=== PATIENT | female | born 1985 | race Two or more races ===

== ENCOUNTER 2017-01-06 05:55 | Inpatient (IN) | payer OTHER ==
[2017-01-06] MEDS ORDERED: DEXTROSE 5%-LACTATED RINGERS 1,000 ML IV SCH ×2 (07:00→11:15)
[2017-01-06 07:03] VITALS: BMI 28.1
[2017-01-06 07:32] LABS: INR 0.89 (0.82-1.09); PROTHROMBIN TIME (PATIENT) 9.8 SEC (9.98-11.88)
[2017-01-06 07:33] LABS: BASOPHIL 0.5 % (0-2.0); EOSINOPHIL 0.5 % (0-4.5); MCH 34.3 pg (25.7-33.7); MCHC 34.9 g/dl (32.0-36.0); MEAN CELL VOLUME 98.2 fl (80-96); MEAN PLT VOLUME 9.4 fl (7.5-11.1); NEUTROPHILS 58.9 % (42.8-82.8); PLATELET COUNT 175 K/MM3 (134-434); RDW 12.9 % (11.6-15.6); WHITE BLOOD COUNT 10.4 K/mm3 (4.0-10.0)
[2017-01-06 07:34] LABS: ACTIVATED PTT 31.1 SECONDS (26.9-34.4)
[2017-01-06 07:41] LABS: ANION GAP 10 (8-16); CALCIUM 8.3 mg/dL (8.5-10.1); CO2 24 mmol/L (21-32); CREATININE 0.5 mg/dL (0.55-1.02); GLUCOSE,RANDOM 75 mg/dL (74-106)
[2017-01-06] MEDS ORDERED: DINOPROSTONE 10 MG VAGINAL SUPPOSITORY VG ONE (10:10)
[2017-01-06] MEDS ORDERED: BUTORPHANOL TARTRATE 1 MG/ML VIAL IVPB ONE (11:08)
[2017-01-06] MEDS ORDERED: PROMETHAZINE HCL 25 MG/1 ML VIAL IVPUSH PRN (11:08)
[2017-01-06] MEDS ORDERED: SODIUM PHOSPHATE/NA BIPHOS 133 ML ENEMA PR PRN (11:12)
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
[2017-01-06] MEDS ORDERED: AMPICILLIN - 2 GM in SODIUM CHLORIDE 100 ML IVPB ONE (20:20)
--- NOTE | 2017-01-06 22:57 | PN ---
Progress Note, Labor Vaginal Exam #1 Labor Exam Date: 01/06/17 Labor Exam Time: 22:30 Heart Rate (range): 140 Dilatation: 3-4 Effacement (%): 80 Amniotic Membrane Status: Ruptured Presentation: Vertex/Position Station: -2 (caput) Remarks: FHR cat-1 UC mild to moderate , Cervidil removed pt requests for pain meds declines enema Pitocin augmentation after pain meds prn Iv ampicillin prophylaxis begun due to SROM > 18 hrs Selected Entries 01/06/17 22:00 Temperature 98.8 F Pulse Rate 116 H Blood Pressure 128/78 Laboratory Tests 01/06/17 06:30 INR 0.89 PTT (Actin FS) 31.1 Vaginal Exam #2 Labor Exam Date: 01/07/17 Labor Exam Time: 01:40 Heart Rate (range): 140 Dilatation: 7 Effacement (%): 90 Amniotic Membrane Status: Ruptured Presentation: Vertex/Position Station: 0 (caput) Remarks: uc q4-7 min fhr 130-140 cat-1 Vaginal Exam #3 Labor Exam Date: 01/07/17 Labor Exam Time: 02:30 Heart Rate (range): 150 Dilatation: 10 Effacement (%): 100 Amniotic Membrane Status: Ruptured Presentation: Vertex/Position Station: +2 Remarks: fhr cat-1 UC 3-5 min pt pushing
[2017-01-07] MEDS ORDERED: AMPICILLIN - 1 GM in SODIUM CHLORIDE 100 ML IVPB SCH (00:21)
[2017-01-07] MEDS ORDERED: OXYTOCIN 15 UNITS/ LR 250 ML 250 ML IVPB SCH (01:15)
[2017-01-07] MEDS ORDERED: oxyCODONE HCL 5 MG TABLET PO PRN (03:40)
[2017-01-07] MEDS ORDERED: ACETAMINOPHEN 325 MG TABLET (FP) PO PRN (03:40)
[2017-01-07] MEDS ORDERED: BENZOCAINE 28 GM HEMORRHOIDAL OINTMENT TP PRN (03:40)
[2017-01-07] MEDS ORDERED: BISACODYL 10 MG SUPP.RECT RC PRN (03:40)
[2017-01-07] MEDS ORDERED: BENZOCAINE 20% 57 GM BOTTLE TP PRN (03:40)
[2017-01-07] MEDS ORDERED: METHYLERGONOVINE MALEATE 0.2 MG/1 ML AMP IM PRN (03:40)
[2017-01-07] MEDS ORDERED: IBUPROFEN 600 MG TABLET (FP) PO PRN (03:40)
[2017-01-07] MEDS ORDERED: WITCH HAZEL 50% (TUCKS) 40 PAD/JAR PAD TP PRN (03:40)
[2017-01-07] MEDS ORDERED: D5W-LR W/ 20 UNITS OXYTOCIN 1,000 ML IV SCH (03:45)
--- NOTE | 2017-01-07 03:56 | PN ---
Delivery - Delivery Vaginal Delivery: No Problems, Spontaneous Type of Anesthesia: Local Episiotomy/Laceration: Periurethral Extnsion/lac (vaginal lacration was sutured with Chr catgut #2/0 bilateral periurethral laceration sutured under L/A with vicryl #3/0 bladder catheterized 150 ml urine drained), Vaginal Extension/lac , 1st degree EBL (cc): 400 (IM Methergine 0.2 mg given ) Delivery, Single - Stages of Labor Date 1st Stage Initiatied: 01/06/17 Time 1st Stage Initiated: 23:00 Date 2nd Stage Initiated: 01/07/17 Time 2nd Stage Initiated: 02:30 Date of Delivery: 01/07/17 Time of Delivery: 02:58 Date Placenta Delivered: 01/07/17 Time Placenta Delivered: 03:05 Placenta: Yes: Spontaneous, Uterine Exploration - Condition of Media Consultant/Financial Director Present: No Infant Gender: Male Weight: 7 lb 1 oz Position: Left, OP Total Hours ROM (Hrs/Mins): 23hrs-40min - 1 Minute Total Score: 9 5 Minutes Total Score: 9 - [place] Feeding Plan Initial Plan: Exclusive throughout hospitalization Remarks - Remarks Remarks: 31 yrs 38.2/7 weeks ,admitted for SROM pnc at [address] [place] [address] . Cervidil inserted for 12 hrs GBS neg Antibiotic prophylaxis with Iv Ampicillin x 2 doses were given due to prolonged srom intrapartum course uneventful
[2017-01-07] MEDS: FERROUS SO4 325 MG TABLET (FP) PO SCH ×2 (08:00→18:03)
[2017-01-07] MEDS: PRENATAL VITAMINS W/ FOLIC ACID TABLET (FP) PO SCH (10:00)
[2017-01-07] MEDS ORDERED: DIPHTH,PERTUSS(ACELL),TET 0.5 ML DISP.SYRIN IM ONE (10:00)
[2017-01-08] MEDS: FERROUS SO4 325 MG TABLET (FP) PO SCH ×2 (07:37→17:12)
[2017-01-08 08:04] LABS: BASOPHIL 0.4 % (0-2.0); EOSINOPHIL 0.3 % (0-4.5); MCHC 34.4 g/dl (32.0-36.0); MEAN CELL VOLUME 98.7 fl (80-96); MEAN PLT VOLUME 9.3 fl (7.5-11.1); PLATELET COUNT 169 K/MM3 (134-434); RDW 12.8 % (11.6-15.6)
--- NOTE | 2017-01-08 08:14 | PN ---
Post Progress Note - Subjective Subjective: no complains Post Day: 1 Type of Delivery: Vital Signs: Vital Signs Temperature 98.5 F 01/07/17 22:00 Pulse Rate 85 01/07/17 22:00 Respiratory Rate 18 01/07/17 22:00 Blood Pressure 123/82 01/07/17 22:00 O2 Sat by Pulse Oximetry (%) 100 01/07/17 05:00 Breast Exam: Yes: Soft. No: Engorged Uterus: Yes: Fundus Firm, Fundus below umbilicus Lochia: Yes: Rubra Lochia, amount: Moderate Extremities: Yes: Calves non-tender Perineum: Yes: Intact (well ), Laceration Activity: Ambulating - Labs Labs: CBC WBC 10.4 K/mm3 (4.0-10.0) H 01/06/17 06:30 RBC 3.49 M/mm3 (3.60-5.2) L 01/06/17 06:30 Hgb 11.9 GM/dL (10.7-15.3) 01/06/17 06:30 Hct 34.3 % (32.4-45.2) 01/06/17 06:30 MCV 98.2 fl (80-96) H 01/06/17 06:30 MCHC 34.9 g/dl (32.0-36.0) 01/06/17 06:30 RDW 12.9 % (11.6-15.6) 01/06/17 06:30 Plt Count 175 K/MM3 (134-434) D 01/06/17 06:30 MPV 9.4 fl (7.5-11.1) D 01/06/17 06:30 Neutrophils % 58.9 % (42.8-82.8) 01/06/17 06:30 Lymphocytes % 28.7 % (8-40) D 01/06/17 06:30 Monocytes % 11.4 % (3.8-10.2) H 01/06/17 06:30 Eosinophils % 0.5 % (0-4.5) D 01/06/17 06:30 Basophils % 0.5 % (0-2.0) 01/06/17 06:30 Problem List - Problems (1) 38 weeks gestation of Code(s): Z3A.38 - 38 WEEKS GESTATION OF (2) SROM (spontaneous rupture of membranes) Code(s): [id number] - Assessment/Plan stable pp cbc pending
[2017-01-08] MEDS: PRENATAL VITAMINS W/ FOLIC ACID TABLET (FP) PO SCH (10:26)
[2017-01-08] MEDS ORDERED: SENNOSIDES/DOCUSATE COMBO (SENNA PLUS) TABLET (UD) PO PRN (22:00)
[2017-01-09 08:55] VITALS: BP 127/80; PULSE 89; TEMP 98
[2017-01-09] MEDS: FERROUS SO4 325 MG TABLET (FP) PO SCH (09:22)
[2017-01-09] MEDS: PRENATAL VITAMINS W/ FOLIC ACID TABLET (FP) PO SCH (09:22)
--- NOTE | 2017-01-09 09:36 | DS ---
Physical Exam-FAMILY SERVICES MANAGER Vital Signs: Vital Signs Temperature 98 F 01/09/17 08:53 Pulse Rate 89 01/09/17 08:53 Respiratory Rate 20 01/09/17 08:53 Blood Pressure 127/80 01/09/17 08:53 O2 Sat by Pulse Oximetry (%) 100 01/07/17 05:00 Constitutional: Yes: Well Nourished Eyes: Yes: WNL HENT: Yes: WNL, Normocephalic Neck: Yes: WNL Cardiovascular: Yes: WNL Respiratory: Yes: WNL Gastrointestinal: Yes: WNL, Normal Bowel Sounds, Soft Renal/: Yes: WNL Pelvis: Yes: WNL External Genitalia: Yes: Normal ....Post : Yes: Uterus firm, Uterus non-tender, Moderate lochia rubra ( perineum intact) Breast(s): Yes: WNL (BF) Musculoskeletal: Yes: WNL Extremities: Yes: WNL. No: Calf Tenderness Edema: Yes Edema: LLE: 1+, RLE: 1+ Integumentary: Yes: Tattoos Neurological: Yes: WNL ...Motor Strength: WNL Psychiatric: Yes: WNL, Alert Labs: CBC, BMP 01/08/17 07:15 01/06/17 06:30 Delivery - Delivery Vaginal Delivery: No Problems, Spontaneous Type of Anesthesia: Local Episiotomy/Laceration: Periurethral Extnsion/lac (vaginal lacration was sutured with Chr catgut #2/0 bilateral periurethral laceration sutured under L/A with vicryl #3/0 bladder catheterized 150 ml urine drained), Vaginal Extension/lac , 1st degree EBL (cc): 400 (IM Methergine 0.2 mg given ) Delivery, Single - Stages of Labor Date 1st Stage Initiatied: 01/06/17 Time 1st Stage Initiated: 23:00 Date 2nd Stage Initiated: 01/07/17 Time 2nd Stage Initiated: 02:30 Date of Delivery: 01/07/17 Time of Delivery: 02:58 Time Placenta Delivered: 03:05 Placenta: Yes: Spontaneous, Uterine Exploration - Condition of Glove Parts Inspector/Milieu Coordinator Present: No Infant Gender: Male Weight: 7 lb 1 oz Position: Left, OP Total Hours ROM (Hrs/Mins): 23hrs-40min - 1 Minute Total Score: 9 5 Minutes Total Score: 9 - [place] Feeding Plan Initial Plan: Exclusive throughout hospitalization Remarks - Remarks Remarks: 31 yrs 38.2/7 weeks ,admitted for SROM pnc at [address] [place] [address] . Cervidil inserted for 12 hrs GBS neg Antibiotic prophylaxis with Iv Ampicillin x 2 doses were given due to prolonged srom intrapartum course uneventful . pp course uneventful. discharge today Discharge Summary Reason For Visit: LABOR Current Active Problems 38 weeks gestation of (Acute) Normal spontaneous vaginal delivery (Acute) SROM (spontaneous rupture of membranes) (Acute) Condition: Stable - Instructions Diet, Activity, Other Instructions: Post Instructions DIET: Continue good diet high in protein, calcium, and iron rich foods. Drink at least eight (8) glasses of water daily in addition to other fluids. Regular diet MEDICATIONS: Continue vitamins and iron as previously directed. Motrin and Tylenol may be taken for minor discomfort. ACTIVITY: Mild to moderate exercise may be started in two (2) weeks. Take frequent rest periods. Resume normal activity after six (6) week check up. WOUND CARE OF OPERATIVE SITE: Continue use of perineal bottle until vaginal discharge stops. Keep area clean. Shower daily. Keep abdominal wound dry. Report any drainage or redness to physician. Tub baths, tampons and douches are not permitted for [address] Breast feeding & or Bottle feeding BREAST CARE: (For those that are not breast feeding): If engorgement occurs: Wear tight fitting bra. Take Tylenol or Motrin for pain. Apply cold packs (ice in bags to each breast ) FAMILY PLANNING: There are many control alternatives to pursue and they should be discussed at your first office visit. You may resume sexual activity after your six (6) week check up. (Remember, breast feeding is not a contraceptive) NEXT PHYSICIAN APPOINTMENT: Be certain to call for a six (6) week appointment, unless otherwise directed. Call Clinic or got to Emergency Dept if you have any of the following: Heavy vaginal bleeding Painful urination Leg pain Unusual odor noted to vaginal bleeding High fever Red streaking noted on breast Referrals: Loni Barrera MD [Staff Physician] - Disposition: HOME - Home Medications Comprehensive Discharge Medication List: Ambulatory Orders Vit Calc,Iron,Folic [ Vitamins] 1 each PO DAILY 01/06/17 Acetaminophen [Tylenol .Regular Strength -] 650 mg PO Q3H PRN #0 tablet Ferrous Sulfate [Feosol] 325 mg PO BIDWM #60 tab 01/07/17 Ibuprofen [Motrin -] 200 mg PO Q4H PRN #0 tablet 01/07/17 Vitamins (Sjr) - 1 tab PO DAILY tablet 01/07/17 Witch Marylu 50% (Tucks) [Tucks Pads -] 1 pad TP PRN PRN #0 pad 01/07/17
== END 2017-01-09 11:45 | disposition home or self-care (01) | DRG 560 ==
LOC: JLDR 05:55 → J3W 01-07 05:20
PROVIDERS: ADMIT Obstetrics & Gynecology; ATTEND Obstetrics & Gynecology
PROC: 3E0P7GC Introduction of Other Therapeutic Substance into Female Reproductive, Via Natural or Artificial Opening (ICD-10-PCS; 2017-01-06)
PROC: 0HQ9XZZ Repair Perineum Skin, External Approach (ICD-10-PCS; principal; 2017-01-07)
PROC: 10E0XZZ Delivery of Products of Conception, External Approach (ICD-10-PCS; 2017-01-07)
DX: O42.02 Full-term premature rupture of membranes, onset of labor within 24 hours of rupture (principal); O70.0 First degree perineal laceration during delivery; Z3A.38 38 weeks gestation of pregnancy; Z37.0 Single live birth
CPT/HCPCS: 36415; 59409; 80048; 85025; 85610; 85730; 86593; 86850; 86900; 86901; 90715

== ENCOUNTER 2019-07-10 15:22 | Emergency (ER) | payer OTHER ==
[2019-07-10 15:28] VITALS: BP 141/71; PULSE 90; TEMP 98; BMI 27.9
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
== END 2019-07-10 16:51 | disposition home or self-care (01) ==
LOC: JERFT 15:22
DX: B35.4 Tinea corporis (principal)
CPT/HCPCS: 99281-25

== ENCOUNTER 2021-09-05 13:37 | Emergency (ER) | payer OTHER ==
[2021-09-05 13:50] VITALS: BMI 29.7
[2021-09-05] MEDS ORDERED: KETOROLAC TROMETHAMINE 30 MG/1 ML VIAL IM ONE (14:31)
[2021-09-05] MEDS ORDERED: KETOROLAC TROMETHAMINE 30 MG/1 ML VIAL ONE (14:42)
[2021-09-05 14:54] VITALS: BP 122/76; PULSE 78; TEMP 97.8
== END 2021-09-05 15:11 | disposition home or self-care (01) ==
LOC: JERFT 13:37 → JER 13:37 → JERFT 15:11
PROC: 3E0233Z Introduction of Anti-inflammatory into Muscle, Percutaneous Approach (ICD-10-PCS; principal; 2021-09-05)
DX: S46.811A Strain of other muscles, fascia and tendons at shoulder and upper arm level, right arm, initial encounter (principal); M54.6 Pain in thoracic spine; X50.1XXA Overexertion from prolonged static or awkward postures, initial encounter
CPT/HCPCS: 99284-25

== ENCOUNTER 2021-11-23 04:18 | Day surgery (SDC) | payer OTHER ==
[2021-11-17 15:32] VITALS: BMI 28.3
[2021-11-23] MEDS ORDERED: PROPOFOL 20 ML ONE ×2 (07:57)
[2021-11-23] MEDS ORDERED: MIDAZOLAM HCL 2 MG/2 ML SINGLE DOSE VIAL ONE (07:57)
[2021-11-23] MEDS ORDERED: FENTANYL CITRATE/PF 50 MCG/ML VIAL ONE ×4 (07:57→09:45)
[2021-11-23] MEDS ORDERED: GLYCOPYRROLATE 0.2 MG/1 ML VIAL ONE (07:58)
[2021-11-23] MEDS ORDERED: LIDOCAINE HCL/PF 2% SDV 5ML VIAL ONE (07:58)
[2021-11-23] MEDS ORDERED: DEXAMETHASONE SOD PHOSPHATE 4 MG/1 ML VIAL ONE (08:24)
[2021-11-23] MEDS ORDERED: KETOROLAC TROMETHAMINE 30 MG/1 ML VIAL ONE (08:24)
[2021-11-23] MEDS ORDERED: PROMETHAZINE HCL 25 MG/1 ML VIAL IVPB PRN (09:24)
[2021-11-23] MEDS ORDERED: oxyCODONE HCL 5 MG TABLET PO PRN (09:24)
[2021-11-23] MEDS ORDERED: LACTATED RINGERS SOLUTION 1,000 ML IV SCH (09:30)
[2021-11-23] MEDS ORDERED: FENTANYL CITRATE/PF 50 MCG/ML VIAL IVPUSH PRN (11:38)
[2021-11-23 11:43] VITALS: TEMP 97.5
[2021-11-23 15:15] VITALS: BP 122/72; PULSE 78
== END 2021-11-23 13:44 | disposition home or self-care (01) ==
LOC: JASU-SURG 04:18
PROVIDERS: ATTEND Obstetrics & Gynecology
PROC: 0UDB8ZX Extraction of Endometrium, Via Natural or Artificial Opening Endoscopic, Diagnostic (ICD-10-PCS; 2021-11-23)
PROC: 0UB98ZZ Excision of Uterus, Via Natural or Artificial Opening Endoscopic (ICD-10-PCS; principal; 2021-11-23 08:00)
DX: N93.8 Other specified abnormal uterine and vaginal bleeding (principal); D25.0 Submucous leiomyoma of uterus; N84.0 Polyp of corpus uteri
CPT/HCPCS: 81025; 88305-TC; 94760

== ENCOUNTER 2021-12-01 16:58 | Emergency (ER) | payer OTHER ==
[2021-12-01 17:10] VITALS: BP 126/90; PULSE 124; TEMP 98.6; BMI 28.6
[2021-12-01] MEDS ORDERED: KETOROLAC TROMETHAMINE 30 MG/1 ML VIAL IM ONE (18:20)
[2021-12-01] MEDS ORDERED: KETOROLAC TROMETHAMINE 30 MG/1 ML VIAL ONE (18:57)
== END 2021-12-01 19:38 | disposition home or self-care (01) ==
LOC: JER 16:58
PROC: 3E0233Z Introduction of Anti-inflammatory into Muscle, Percutaneous Approach (ICD-10-PCS; principal; 2021-12-01)
DX: M25.572 Pain in left ankle and joints of left foot (principal)
CPT/HCPCS: 73610-TC-LT-FY; 73630-TC-LT; 99284-25

== ENCOUNTER 2022-08-25 11:40 | Emergency (ER) | payer OTHER ==
[2022-08-25 11:49] VITALS: BP 117/78; PULSE 75; RESP 16; TEMP 97.7; BMI 29.9
== END 2022-08-25 12:42 | disposition home or self-care (01) ==
LOC: JERFT 11:40
DX: H10.33 Unspecified acute conjunctivitis, bilateral (principal)
CPT/HCPCS: 99283-25

== ENCOUNTER 2023-10-21 07:50 | Emergency (ER) | payer OTHER ==
[2023-10-21 07:57] VITALS: BP 119/77; PULSE 89; RESP 18; TEMP 98.2; BMI 30.7
[2023-10-21 08:48] LABS: BASO % 0.7 % (0-2.0); EOS % 0.5 % (0-4.5); HEMATOCRIT 32.6 % (32.4-45.2); LYMPH % 26.6 % (8-40); MCH 31.4 pg (25.7-33.7); MCHC 33.8 g/dl (32.0-36.0); MEAN CELL VOLUME 92.9 fl (80-96); MEAN PLT VOLUME 8.1 fl (7.5-11.1); MONO % 7.9 % (3.8-10.2); NEUT % 64.3 % (42.8-82.8); PLATELET COUNT 272 10^3/uL (134-434); RBC 3.51 M/mm3 (3.60-5.2); RDW 13.9 % (11.6-15.6); WHITE BLOOD COUNT 6.4 K/mm3 (4.0-10.0)
[2023-10-21 08:51] LABS: HCG,QUALITATIVE URINE Negative; PH,URINE 5.5 (5.0-8.0); URINE APPEARANCE Error; URINE BILIRUBIN NEGATIVE (NEGATIVE); URINE COLOR YELLOW; URINE GLUCOSE (UA) NEGATIVE (NEGATIVE); URINE KETONE NEGATIVE (NEGATIVE); URINE LEUK ESTERASE NEGATIVE (NEGATIVE); URINE NITRITE NEGATIVE (NEGATIVE); URINE PROTEIN TRACE (NEGATIVE)
[2023-10-21 09:14] LABS: POTASSIUM 3.6 mmol/L (3.5-5.1)
[2023-10-21 09:16] LABS: BLOOD UREA NITROGEN 8.8 mg/dL (7-18); CALCIUM 8.5 mg/dL (8.5-10.1)
[2023-10-21 09:19] LABS: CREATININE 0.7 mg/dL (0.55-1.3)
[2023-10-21 09:21] LABS: BILIRUBIN,TOTAL 0.5 mg/dL (0.2-1); TOT PROT 6.6 g/dl (6.4-8.2)
[2023-10-21 09:28] LABS: EPI CELLS 12.1 /uL (0-25.1); HYALINE CASTS 1.02 /uL (0-3.1); URINE BACTERIA 18.4 /uL (0-1359); URINE RBC 5161.5 /uL (0-23.9); URINE WBC 37.1 /uL (0-25.8)
== END 2023-10-21 11:07 | disposition home or self-care (01) ==
LOC: JER 07:50
DX: N93.9 Abnormal uterine and vaginal bleeding, unspecified (principal); N80.9 Endometriosis, unspecified; R10.30 Lower abdominal pain, unspecified; R42 Dizziness and giddiness; R53.83 Other fatigue
CPT/HCPCS: 36415; 76830-TC; 80053; 81003; 84703; 85025; 87077; 87086; 99284-25

== ENCOUNTER 2024-10-25 09:16 | Emergency (ER) | payer OTHER ==
[2024-10-25 09:53] VITALS: BMI 32.9
[2024-10-25 10:31] LABS: EPI CELLS >36 /uL (0-25.1); HYALINE CASTS 2 /uL (0-3.1); PH,URINE 5.5 (5.0-8.0); URINE APPEARANCE CLEAR; URINE BACTERIA 852 /uL (0-1359); URINE BILIRUBIN NEGATIVE (NEGATIVE); URINE COLOR YELLOW; URINE GLUCOSE (UA) NEGATIVE (NEGATIVE); URINE KETONE 1+ (NEGATIVE); URINE LEUK ESTERASE 1+ (NEGATIVE); URINE NITRITE NEGATIVE (NEGATIVE); URINE PROTEIN TRACE (NEGATIVE); URINE RBC 9 /uL (0-23.9); URINE WBC 23 /uL (0-25.8)
[2024-10-25] MEDS ORDERED: ONDANSETRON 4 MG/2 ML VIAL ONE (10:32)
[2024-10-25 10:37] LABS: HCG,QUALITATIVE URINE Positive
[2024-10-25] MEDS: ONDANSETRON 4 MG/2 ML VIAL IVPUSH ONE (10:38)
[2024-10-25] MEDS: SODIUM CHLORIDE 0.9% 500 ML INFUS.BAG IV ONE (10:38)
[2024-10-25 10:56] LABS: ABSOLUTE IMMATURE GRANULOCYTES 0.04 x10^3/uL (0.0-0.031); BASOPHILS # 0.04 x10^3/uL (0.01-0.08); HEMATOCRIT 35.5 % (34.1-44.9); HEMOGLOBIN 11.5 g/dL (11.2-15.7); MCHC 32.4 g/dl (32.2-35.5); MEAN CELL VOLUME 90.3 fl (79.4-94.8); MEAN PLT VOLUME 9.8 fl (9.4-12.3); MONOCYTE # 0.65 x10^3/uL (0.24-0.86); MONOCYTE % 7.7 % (4.7-12.5); PLATELET COUNT 284 x10^3/uL (182-369); RDW 13.5 % (12.1-16.8)
[2024-10-25 11:00] LABS: POTASSIUM 4.1 mmol/L (3.5-5.1)
[2024-10-25 11:02] LABS: ALBUMIN 3.4 g/dl (3.4-5.0); BLOOD UREA NITROGEN 11.6 mg/dL (7-18); CALCIUM 9.5 mg/dL (8.5-10.1); MAGNESIUM 1.8 mg/dL (1.8-2.4)
[2024-10-25 11:05] LABS: CREATININE 0.6 mg/dL (0.55-1.3)
[2024-10-25 11:07] LABS: BILIRUBIN,TOTAL 0.9 mg/dL (0.2-1); TOT PROT 7.4 g/dl (6.4-8.2)
[2024-10-25 12:56] VITALS: BP 110/56; PULSE 87; RESP 17; TEMP 98.3
== END 2024-10-25 14:02 | disposition home or self-care (01) ==
LOC: JER 09:16
PROC: 3E033GC Introduction of Other Therapeutic Substance into Peripheral Vein, Percutaneous Approach (ICD-10-PCS; principal; 2024-10-25)
DX: O09.521 Supervision of elderly multigravida, first trimester (principal); O21.9 Vomiting of pregnancy, unspecified; Z3A.11 11 weeks gestation of pregnancy
CPT/HCPCS: 36415; 76817-TC; 80053; 81003; 83735; 84702; 84703; 85025; 87086; 99285-25